=== PATIENT | male | born 1985 | race Caucasian/White ===

== ENCOUNTER 2020-05-02 10:36 | Emergency (ER) | payer BC, OTHER ==
[2020-05-02 10:54] VITALS: BP 139/94
--- NOTE | 2020-05-02 11:47 | XRAY Report ---
PROCEDURE: Shoulder 2 View RT INDICATIONS: shoulder pain TECHNIQUE: 2 views of the shoulder were acquired. COMPARISON: None. FINDINGS: Bones: No acute fractures or dislocations. No suspicious bony lesions. Visualized ribs appear inta ct. Soft tissues: No suspicious soft tissue calcifications. IMPRESSION: No acute osseous abnormality. If there is clinical concern or persistent symptoms, furth er evaluation with repeat radiographs or advanced imaging (e.g. CT, MRI) may be obtained for further evaluation. Reviewed by: Raymond Desai MD on 05/02/2020 11:46 AM [facility] Approved by: Raymond Desai MD on 05/02/2020 11:46 AM PST Station ID: [id number]
--- NOTE | 2020-05-02 14:43 | ED Physician Documentation ---
History of Present Illness - Stated complaint Stated Complaint: RT SHOULDER PX - Chief complaint Chief Complaint: Ext Problem - History obtained from History obtained from: Patient - Additonal information Additional information: 35yM with no pmh, no prior injury to the L shoulder, p/w gradual onset L shoulder pain, aching quality, moderate, worse with ROM, starting last night around 10pm. no inciting incident. also thought his hand was swollen earlier but it seems to have resolved. denies fevers, rash other symptoms. Review of Systems Skin: denies: Rash Musculoskeletal: reports: Joint pain Neurologic: denies: Focal weakness, Numbness PD PAST MEDICAL HISTORY - Past Medical History Past Medical History: No - Past Surgical History Past Surgical History: Yes HEENT: Other - Allergies Allergies/Adverse Reactions: Allergies Allergy/AdvReac Type Severity Reaction Status Date / Time No Known Drug Allergies Allergy Verified 05/02/20 10:54 - Social History Does the pt smoke?: No Smoking Status: Never smoker Does the pt drink ETOH?: No Does the pt have substance abuse?: No - Immunizations Immunizations are current?: Yes PD ED PE NORMAL - Vitals Vital signs reviewed: Yes - General General: Alert and oriented X 3 - HEENT HEENT: Atraumatic, PERRL - Derm Derm: Normal color, Warm and dry, No rash - Extremities Extremities: No deformity, No tenderness to palpate, Other (FROM of left shoulder, but tender with ROM above the shoulder line. sensory, vascular, motor intact in BL UE. no midline ttp in neck) - Neuro Neuro: Alert and oriented X 3, No motor deficit, No sensory deficit Results - Vitals Vitals: Vital Signs - 24 hr 05/02/20 10:46 Temperature 36.5 C Heart Rate 60 Respiratory 14 Rate Blood Pressure 139/94 H O2 Saturation 100 PD MEDICAL DECISION MAKING - ED course ED course: 35yM, previously healthy p/w L shoulder pain since last night, atraumatic. no evidence of injury on xray. patient with FROM but with pain. declining toradol shot. will f/u with orthopedics as an outpatient if no improvement with conservative management in new few days. return precautions given. Departure - Departure Disposition: 01 Home, Self Care Clinical Impression: Shoulder strain Condition: Good Instructions: ED RICE Follow-Up: Juan Camilo MD [Provider Admit Priv/Credential] - Comments: You have been seen in the ed for shoulder strain. your xray shows no acute injury. return to the ed for any new or worsening symptoms. follow up with orthopedics if you don't have improvement.
== END 2020-05-02 14:51 | disposition home or self-care (01) ==
LOC: ED 10:36
DX: S46.912A Strain of unspecified muscle, fascia and tendon at shoulder and upper arm level, left arm, initial encounter (principal)
CPT/HCPCS: 99282; 99283

== ENCOUNTER 2020-05-16 08:17 | Outpatient (CLI) | payer BC, OTHER ==
--- NOTE | 2020-05-17 11:13 | Ultrasound Report ---
PROCEDURE: Abdomen Complete INDICATIONS: Chronic lower abdominal pain, chronicity reported to have lasted at least one year. TECHNIQUE: Real-time scanning was performed of the abdominal and retroperitoneal organs, with image documentatio n. COMPARISON: None. FINDINGS: Liver: Liver is normal in size and homogeneous in echotexture. Gallbladder: Normal. Biliary ducts: Intrahepatic bile ducts are non-dilated. Extrahepatic bile duct caliber measures 2.0 mm. Normal is 6-7 mm or less in diameter, or 10 mm or less post-cholecystectomy. Pancreas: Visualized portions of the pancreas are sonographically normal. Spleen: Spleen is normal in size and homogeneous in echotexture. Kidneys: Kidneys are normal in size and echotexture. Right kidney measures 12.5 cm long; left kidne y measures 11.3 cm long. No hydronephrosis or nephrolithiasis. No solid masses. Aorta: Visualized aorta is normal in caliber at less than 3 cm. Iliacs: Proximal common iliac arteries are normal in caliber at less than 2.5 cm. IVC: Intrahepatic inferior vena cava is patent. Miscellaneous: No free abdominal fluid. IMPRESSION: Normal abdominal ultrasound, source of persistent lower abdominal pain is not seen. Depending on the clinical status follow-up by CT scanning may be warranted. Reviewed by: Arsenio Nash MD on 05/17/2020 11:11 AM PST Approved by: Arsneio Nash MD on 05/17/2020 11:11 AM PST Station ID: [id number]
== END 2020-05-16 08:18 | disposition home or self-care (01) ==
LOC: DI 08:17
PROVIDERS: ATTEND Naprapath
DX: R10.30 Lower abdominal pain, unspecified (principal)